=== PATIENT | male | born 2005 | race Caucasian/White ===

== ENCOUNTER 2025-04-11 14:05 | Emergency (ER) | payer MEDICAID ==
[~2025-04-11] VITALS: Ht 182.9 cm; Wt 113.0 kg
[2025-04-11 14:12] VITALS: O2SAT 100
[2025-04-11] MEDS: HYDROCODONE/ACETAMINOPHEN 10/325MG TABLET PO ONE (16:24)
[2025-04-11] MEDS: LIDOCAINE HCL/EPINEPHRINE 1%-EPI 1:100,000 20ML VIAL INFIL ONE (17:00)
[2025-04-11] MEDS: BACITRACIN ZINC OINT UDPKT TOP ONE (17:00)
[2025-04-11] MEDS: CEFAZOLIN SODIUM 1000MG/VIAL IM ONE (17:15)
[2025-04-11] MEDS: TETANUS, DIPHTHERIA, PERTUSSIS VAC/PF 0.5ML (>10YR OLD) IM ONE (17:58)
[2025-04-11] MEDS ORDERED: BO1 TP (21:21)
[2025-04-11] MEDS ORDERED: SULF1TAB48 MT (21:21)
[2025-04-11] MEDS ORDERED: CEPH500T MT (21:21)
[2025-04-11] MEDS ORDERED: HYDR-4001 MT (21:24)
[2025-04-11] MEDS ORDERED: IBUP-2029 MT (21:25)
[2025-04-11 22:16] VITALS: BP 137/75; PULSE 75; RESP 18; TEMP 36.9; O2SAT 98
== END 2025-04-11 22:21 | disposition home or self-care (01) ==
LOC: ER 14:05
DX: S61.411A Laceration without foreign body of right hand, initial encounter (principal)
CPT/HCPCS: 73130; 90715; 12004; 90471; 96372; 99284; J0690; J2004; Z7610; A4565

== ENCOUNTER 2025-04-25 18:17 | Emergency (ER) | payer MEDICAID ==
[~2025-04-25] VITALS: Ht 182.9 cm; Wt 113.0 kg
[~2025-04-25 18:17] MED LIST: BO1 TP; CEPH500T MT; HYDR-4001 MT; IBUP-2029 MT; SULF1TAB48 MT
[2025-04-25 18:42] VITALS: TEMP 36.9; O2SAT 98
[2025-04-25 22:11] VITALS: BP 102/46; PULSE 61; RESP 18; O2SAT 99
== END 2025-04-25 22:12 | disposition home or self-care (01) ==
LOC: ER 18:17
DX: S61.411D Laceration without foreign body of right hand, subsequent encounter (principal); Z79.899 Other long term (current) drug therapy; X58.XXXD Exposure to other specified factors, subsequent encounter
CPT/HCPCS: 99282

== ENCOUNTER 2025-05-01 16:19 | Emergency (ER) | payer MEDICAID ==
[~2025-05-01] VITALS: Ht 182.9 cm; Wt 113.4 kg
[2025-05-01 16:38] VITALS: O2SAT 99
[2025-05-01] MEDS ORDERED: BO1 TP (18:22)
[2025-05-01 20:09] VITALS: BP 121/61; PULSE 62; RESP 12; TEMP 36.7; O2SAT 97
== END 2025-05-01 20:10 | disposition home or self-care (01) ==
LOC: ER 16:19
DX: S61.411D Laceration without foreign body of right hand, subsequent encounter (principal); Z79.899 Other long term (current) drug therapy; X58.XXXD Exposure to other specified factors, subsequent encounter
CPT/HCPCS: 99282; Z7610